=== PATIENT | female | born 1970 | race African-American/Black ===

== ENCOUNTER → 2017-03-15 | Outpatient (CLI) | payer OTHER ==
[~2017-03-15] MED LIST: AMBI10TA PO; GABA300C5 PO; METF500T PO; MULTTAB67 PO; NORC5TAB PO
[2017-03-15 11:28] LABS: HEMATOCRIT 39.4 % (35.0-46.0); MEAN CELL VOLUME 86.1 FL (80.0-100.0); MEAN CORPUSCULAR HEMOGLOBIN 27.7 PG (27.0-34.0); MEAN CORPUSCULAR HGB CONC 32.2 % (32.0-36.0); PLATELET COUNT 267 TH/MM3 (150-450); RED BLOOD COUNT 4.58 MIL/MM3 (4.00-5.30); RED CELL DISTRIBUTION WIDTH 13.5 % (11.6-17.2); REVIEW FLAG FINAL; WHITE BLOOD COUNT 7.7 TH/MM3 (4.0-11.0)
== END ==
LOC: CPRE 10:10
PROVIDERS: ATTEND Obstetrics & Gynecology
DX: Z01.812 Encounter for preprocedural laboratory examination (principal); D25.9 Leiomyoma of uterus, unspecified
CPT/HCPCS: 36415; 84703; 85027

== ENCOUNTER 2017-03-21 07:51 | Observation (INO) | payer OTHER ==
[~2017-03-21] VITALS: Ht 170.2 cm; Wt 89.3 kg
[2017-03-21] MEDS ORDERED: MIDAZOLAM HCL 2 MG/2 ML VIAL IV PUSH SCH (08:30)
[2017-03-21] MEDS ORDERED: ceFAZolin 1,000 MG/NS 100 ML IV SCH ×2 (08:30)
[2017-03-21] MEDS ORDERED: CHLORHEXIDINE GLUCONATE 2 % 1 PACK (2 CLOTHS) TOPICAL PRN (08:30)
[2017-03-21] MEDS ORDERED: SODIUM CHLORID 0.9% 500 ML IV PRN (08:30)
[2017-03-21] MEDS ORDERED: ONDANSETRON HCL 4 MG/2 ML VIAL IV PUSH SCH (08:30)
[2017-03-21] MEDS ORDERED: POVIDONE IODINE 5% (ANTISEPSIS KIT) 4 APPLICATIONS EACH NARE PRN (08:30)
[2017-03-21] MEDS ORDERED: METOPROLOL TARTRATE 25 MG TAB PO PRN (08:30)
[2017-03-21] MEDS ORDERED: INSULIN HUMAN REGULAR 1,000 UNITS/10 ML VIAL SQ PRN (08:30)
[2017-03-21] MEDS ORDERED: LACTATED RINGER'S 1000 ML IV PRN (08:30)
[2017-03-21 08:31] VITALS: BP 160/99; PULSE 97; RESP 16; TEMP 98.6; O2SAT 98
[2017-03-21] MEDS ORDERED: FAMOTIDINE 20 MG/2 ML VIAL ONE (10:22)
[2017-03-21] MEDS ORDERED: DEXAMETHASONE SOD PHOS 4 MG/ML VIAL ONE (10:40)
[2017-03-21] MEDS ORDERED: NEOSTIGMINE 3 MG/3 ML SYR IV ONE (12:00)
[2017-03-21] MEDS ORDERED: ONDANSETRON HCL 4 MG/2 ML VIAL IV PUSH ONE (12:00)
[2017-03-21] MEDS ORDERED: PROPOFOL 200 MG/20 ML AMP IV ONE (12:00)
[2017-03-21] MEDS ORDERED: LACTATED RINGER'S 1000 ML INJ 1,000 ML IV ONE (12:00)
[2017-03-21] MEDS ORDERED: MORPHINE SULFATE 30 MG/30 ML PCA ONE (12:23)
[2017-03-21] MEDS ORDERED: fentaNYL CITRATE 250 MCG/5 ML AMP ONE ×2 (12:42→12:43)
[2017-03-21] MEDS: DEXT 5%-NACL 0.45% 1000 ML INJ 1,000 ML IV SCH ×2 (13:00→20:52)
[2017-03-21] MEDS ORDERED: KETOROLAC TROMETHAMINE 30 MG/ML (IVP) VIAL ONE (13:02)
[2017-03-21] MEDS ORDERED: diphenhydrAMINE HCL 50 MG/ML VIAL IV PUSH PRN (13:15)
[2017-03-21] MEDS ORDERED: MORPHINE SULFATE 30 MG/30 ML PCA IV SCH (13:15)
[2017-03-21] MEDS ORDERED: NALOXONE HCL 0.4 MG/ML AMP IV PRN (13:15)
[2017-03-21] MEDS ORDERED: DO NOT ADM ANY ANTICOAGULANT DRUGS PRN (13:30)
[2017-03-21] MEDS ORDERED: ONDANSETRON HCL 4 MG/2 ML VIAL IV PUSH PRN (13:30)
[2017-03-21] MEDS ORDERED: oxyCODONE/ACETAMINOPHEN 5 MG/325 MG TAB PO PRN (13:30)
[2017-03-21] MEDS ORDERED: KETOROLAC TROMETHAMINE 30 MG/ML (IVP) VIAL IV PUSH ONE (13:30)
[2017-03-21] MEDS: PCA - TOTAL MG MORPHINE DELIVERED PER SHIFT SCH ×2 (14:00→22:00)
[2017-03-21 14:05] VITALS: BP 134/84; PULSE 61; RESP 16; TEMP 98; O2SAT 100
[2017-03-21 18:05] VITALS: BP 129/68; PULSE 73; RESP 16; TEMP 98; O2SAT 97
[2017-03-21 20:00] VITALS: BP 111/68; PULSE 72; RESP 16; TEMP 98.8; O2SAT 98
[2017-03-22 00:05] VITALS: BP 106/57; PULSE 76; RESP 16; TEMP 99; O2SAT 98
[2017-03-22 04:00] VITALS: BP 99/56; PULSE 73; RESP 16; TEMP 98.7; O2SAT 97
[2017-03-22] MEDS: DEXT 5%-NACL 0.45% 1000 ML INJ 1,000 ML IV SCH (04:01)
[2017-03-22 05:04] LABS: HEMATOCRIT 32.4 % (35.0-46.0); REVIEW FLAG FINAL
[2017-03-22 06:00] VITALS: RESP 16
[2017-03-22] MEDS: PCA - TOTAL MG MORPHINE DELIVERED PER SHIFT SCH (06:00)
--- NOTE | 2017-03-23 13:27 | MP ---
cc: ASHU JAMES DATE OF SURGERY: 03/21/2017 PREOPERATIVE DIAGNOSIS 1. Leiomyomata uteri. 2. Menorrhagia. POSTOPERATIVE DIAGNOSIS 1. Leiomyomata uteri. 2. Menorrhagia. PROCEDURE Laparoscopic-assisted supracervical hysterectomy. SURGEON MD Colleen ANESTHESIA General. ESTIMATED BLOOD LOSS 200 cc. COMPLICATIONS None. FINDINGS The patient had a uterus that was approximately 11-12 weeks' size with multiple intramural and submucosal fibroids present, the largest appearing to be approximately 5-6 cm in size. The fallopian tubes and ovaries were unremarkable. The anterior and posterior cul-de-sacs were free of disease. The upper abdominal organs were normal as far as could be visualized. DESCRIPTION OF PROCEDURE The patient was brought into the operating room and following general anesthesia was placed in the dorsal lithotomy position. Her vagina, abdomen and perineum were prepped and draped. A HUMI catheter was placed in the uterus and a Cooper catheter into the bladder. A 1 cm subumbilical skin incision was made. A Veress needle was inserted and 3 liters of CO2 was infused into the abdomen. The Veress needle was then removed and the laparoscope was placed without difficulty. A second, third and fourth puncture site were created under direct visualization. The findings were as noted above. The Harmonic scalpel was used to clamp, cut and seal the round ligaments and upper broad ligaments. The bladder peritoneum was incised and the bladder was sharply dissected off of the anterior cervix. The uterine vessels were then clamped, cut and sealed with the Harmonic scalpel. A loop was then used to transect the cervix across the upper portion. The stump of the cervix and endocervical canal were cauterized for future hemostasis. The fallopian tubes were removed by sealing the mesosalpinx with the Harmonic scalpel. The tubes were removed and then the uterus was morcellated and removed. The pelvis was copiously irrigated and hemostasis was noted. With no other pathology present and photos taken, all instruments were then removed and the CO2 gas was allowed to escape. The incisions were then closed with subcuticular 4-0 Vicryl stitch. The patient was then taken to the recovery room in good condition with all counts correct and clear urine draining in her Cooper catheter. MD DEWAYNE Limon/EDMOND /11:47 AM /1:20 PM
== END 2017-03-22 10:59 | disposition home or self-care (01) ==
LOC: HSDC 07:51 → EDUNIT# 10:00 → H1EA 14:41 → HSDI 14:41
PROVIDERS: ADMIT Obstetrics & Gynecology; ATTEND Obstetrics & Gynecology
PROC: 0UT74ZZ Resection of Bilateral Fallopian Tubes, Percutaneous Endoscopic Approach (ICD-10-PCS; 2017-03-21)
PROC: 0UT94ZZ Resection of Uterus, Percutaneous Endoscopic Approach (ICD-10-PCS; principal; 2017-03-21 10:43)
DX: D25.9 Leiomyoma of uterus, unspecified (principal); N92.0 Excessive and frequent menstruation with regular cycle
CPT/HCPCS: 00840; 58544; 85014; 85018; 86850; 86900; 86901; 88307; G0378; J0690; J1100; J2250; J2270; J2405; J2710; J3010; J7120; J1885